=== PATIENT | male | born 1995 | race Caucasian/White ===

== ENCOUNTER → 2023-10-27 08:03 | Outpatient (REF) | payer OTHER, SELFPAY | LOC: HO.SL 08:03 | PROVIDERS: Visit Provider Psychiatry & Neurology Neurology | DX: G47.33 Obstructive sleep apnea (adult) (pediatric) (principal) | CPT/HCPCS: 95806 ==

== ENCOUNTER → 2023-10-27 19:00 | Outpatient (BNV) | payer OTHER, SELFPAY | PROVIDERS: Visit Provider Internal Medicine | DX: G47.10 Hypersomnia, unspecified (principal) | CPT/HCPCS: 95806 ==